=== PATIENT | male | born 1970 | race Caucasian/White ===

== ENCOUNTER 2025-09-12 10:30 | Day surgery (SDC) | payer BC, SELFPAY ==
--- NOTE | 2025-09-11 17:39 | W.ANESPRE ---
General Info Date of Service Date Performed: 09/12/25 Height: 5 ft 10 in Weight: 84.482 kg Body Mass Index (BMI): 26.7 Surgical Procedure: Operation Date: 09/12/25 12:10 Proposed Procedure Side Surgeon p Hernia Ventral Laparoscopic w/Mesh Right Geoff Gill MD Meds Allergies and Home Medications Allergies Allergy/AdvReac Type Severity Reaction Status Date / Time No Known Allergies Allergy Verified 09/12/25 10:36 Home Medication ?Medication ?Instructions ?Recorded ascorbic acid (vitamin C) 500 mg 500 mg PO DAILY 11/21/24 capsule cholecalciferol (vitamin D3) 50 50 mcg PO DAILY 11/21/24 mcg (2,000 unit) capsule tadalafil 20 mg tablet (Cialis) 20 mg PO DAILY PRN 11/21/24 multivitamin 1 tab PO DAILY 09/11/25 Current Visit Medications: Current Medications Generic Name Dose Route Start Last Admin Trade Name Freq PRN Reason Stop Dose Admin Acetaminophen 1,000 mg 09/12/25 06:00 Acetaminophen 500 Mg Tab PO 09/12/25 23:59 PREOP ELLEN Celecoxib 200 mg 09/12/25 06:00 Celecoxib 200 Mg Cap PO 09/12/25 23:59 PREOP ELLEN Gabapentin 600 mg 09/12/25 06:00 Gabapentin 300 Mg Cap PO 09/12/25 23:59 PREOP ELLEN Ringer's Solution 1,000 mls @ 80 mls/hr 09/12/25 06:00 IV 09/12/25 23:59 INFUSION ELLEN Cefazolin Sodium/Dextrose 2 gm in 50 mls @ 100 mls/hr 09/12/25 06:00 Ancef Duplex IVPB 09/12/25 23:59 PREOP ELLEN Sodium Chloride 0 ml 09/12/25 06:00 Normal Saline Flush 10 Ml Syr IV 09/12/25 23:59 PRN PRN Sodium Chloride 0 ml 09/12/25 06:00 Normal Saline 10 Ml Vial IJ 09/12/25 23:59 DIRECTED PRN Sterile Water 0 ml 09/12/25 06:00 Water,Injection,Sterile 10 Ml Vial IJ 09/12/25 23:59 DIRECTED PRN PFSH Active Problems Active Problems: Problem Status Onset Code Spigelian hernia Acute K43.9 Surgical History Surgical History Hx of wisdom tooth extraction History of ankle surgery Tobacco Smoking/Tobacco Use Status: Current-Occasional Tobacco Type: cigarettes Passive smoking exposure: Yes Alcohol Alcohol Intake: current Alcohol intake frequency: 0-2 drinks per day Alcohol type: beer Substance Use Substance use: Never Substance use type: does not use Vital Signs and Lab Results Vital Signs Comment Vital Signs Comment:: Temp Pulse Resp BP Pulse Ox 36.2 C L 74 18 136/98 H 98 09/12/25 10:45 09/12/25 10:45 09/12/25 10:45 09/12/25 10:45 09/12/25 10:45 Anesthesia Assessment and Plan Anesthesia History Personal History: No History of Anesthesia Complications Family History: No Family History of Anesthesia Complications Exercise Tolerance Exercise Tolerance: Metabolic Equivalents>4 Pertinent Negatives Pertinent Negatives: No Symptoms of GERD, No Major Cardiovascular Symptoms or Complaints, No Major Pulmonary Symptoms or Complaints and No History of CVA/TIA Cardiac & Pulmonary Exam Cardiac Exam: Normal S1/S2 Heart Sounds Pulmonary Exam: Clear Bilateral Breath Sounds Implantable Cardiac Device Does patient have a Pacemaker or an ICD?: No Airway Exam Known Difficult Airway: No Mallampati Class: 2 Mouth Opening: Normal (> 3cm) Thyromental Distance: Greater than 3 cm Facial Hair: Full [place] Neck Range of Motion: Full ROM Neck Circumference: Normal Teeth Condition: Normal Dentition ASA Classification ASA Score: ASA 2 Emergency Case?: No NPO Status NPO Status: NPO Clears >2 hours, Solids >8 hours Anesthesia Plan Resuscitation Status: Full Code Anesthesia Technique: General Anesthesia Airway Planned: Endotracheal Tube Monitors Used: Standard Monitors
--- NOTE | 2025-09-11 19:49 | PDOC.DSDIS_ITS ---
Date of service: 09/12/25 Discharge Plan Disposition Patient Disposition: Home Condition: Good Discharge Details Reason For Visit: Spigelian hernia repair Attending Provider: Geoff Gill Primary Care Provider: Wesley Oconnell Home Meds and New Rx's Prescriptions: New tramadol 50 mg tablet 50 mg PO Q8H PRNQty: 12 0RF Rx Instructions: Take 1 tablet by mouth up to every 8 hours if you needed for more severe Continued tadalafil [Cialis] 20 mg tablet 20 mg PO DAILY PRN Rx Instructions: administer approximately 30min before sexual activity; do not use more than 1 dose per 24hrs ascorbic acid (vitamin C) 500 mg capsule 500 mg PO DAILY cholecalciferol (vitamin D3) 50 mcg (2,000 unit) capsule 50 mcg PO DAILY multivitamin Tablet 1 tab PO DAILY Discharge Instructions Instructions: Abdominal Hernia Repair, Laparoscopic Surgery Additional Instructions: Mauricio, it was good to see you today, and I hope you make a quick and uneventful recovery as you transition home. As suspected, you had a spigelian hernia, which I was able to reduce, and repair laparoscopically. As you will see, you have 3 incisions on the left side of your abdomen, as well as 1 tiny little incision on the right lower part of the abdomen. All of these have Band-Aids in place, which can stay until tomorrow. If you need to change the Band-Aid because they get wet or saturated with blood, that is totally fine. Tomorrow, you should remove all the bandages, wash all of the incisions with warm soapy water. If they are comfortable, you do not need to replace the Band-Aids. But if you find that to be more appealing, you are certainly welcome to change the Band-Aids daily. Expect to get some bruising over the incision sites, and perhaps down around that small site on the right side of your abdomen. It is extremely common and nothing to worry about. Using ice packs over the incisions in the area of the hernia will also be helpful with pain and swelling after surgery. As we discussed, be a little careful with your lifting over the next few days, keeping it to about a gallon of milk or so. I look forward to seeing you in the office on the . Obviously, if you need anything in the meantime, please do not hesitate to call at any point. 1. Resume all of your regular medications. 2. Use ice packs over the incisions to help with pain and swelling. 3. Alternate over the counter tylenol and ibuprofen every 6 hours for the first two days, then use them as needed. Use the prescription for tramadol if needed for severe pain. 4. Leave bandages in place for 24 hours, then remove. 5. Shower with warm soapy water. Pat dry. Replace bandaids if you find that more comfortable. 6. No soaking or tub baths until I see you in the office. 7. No heavy lifting until I see you in the office. 8. Call the office (or go directly to the emergency room after hours) if you notice any of the following: Develop chills (warm to touch), or if you have a thermometer and your temperature is above 101 Difficulty breathing or difficultly swallowing Persistent vomiting Any bleeding ? exceeding one tablespoon 9. Call your physician if the site where your intravenous was started becomes red, swollen, painful, and warm to touch. Stand Alone Forms: Anesthesia Discharge Inst., Justine Persaud ([facility]), Portal Information Referrals: Geoff Gill MD [ [facility] STAFF PHYSICIAN, Surgery] - 09/25/25 8:15 am Activity:: no heavy lifting Remove Dressings/Wound Care:: 24 hours Shower/Bathe:: 24 hours Diet:: As Tolerated Discharge Orders Discharge Orders: Discharge Order (Routine); Ordered 09/11/25 Ordered By: Geoff Gill DS: Diagnosis Discharge Diagnosis (1) Spigelian hernia: Status: Acute Asessment and Plan: Discharge home with outpatient follow-up
--- NOTE | 2025-09-11 19:59 | W.PM.OP ---
Operative Note Operative Note PRE-OP DIAGNOSIS: Spigelian hernia PROCEDURE: laparoscopic Spigelian hernia repair with mesh SURGEON: Geoff Gill CHILD CARE EDUCATION COORDINATOR: Mita Keller ANESTHESIA TYPE: Local By Surgeon and General LMA/ETT Refer to Anesthesia Record ESTIMATED BLOOD LOSS: 25 PATHOLOGY: none sent COMPLICATIONS: None Patient was transported to: PACU Patient's condition: stable Implants: Bard polypropylene mesh Indications: Mauricio is a 55-year-old male with a symptomatic spigelian hernia Findings: Right sided spigelian hernia Procedure Description: I met with Mauricio in the preoperative area, we reviewed the plan for surgery. We then moved back to the operating room, and he was assisted onto the OR table. General endotracheal anesthesia was initiated. The left arm was tucked tucked against his side taking great care to ensure that it was padded and supported appropriately. A De La Cruz urinary catheter was inserted to decompress the bladder. This was done using standard aseptic technique without any complications. I prepped and draped the anterior abdominal wall. I anesthetized the skin in the left upper quadrant, made a small incision, and establish pneumoperitoneum using a 5 mm optical viewing port. 5 mm 30 degree scope was advanced back into the peritoneum, and I turned my attention to the right lower quadrant. There is a abnormality seen on the peritoneum, at the lateral edge of the rectus muscle, and an area consistent with spigelian hernia. I then rolled Mauricio slightly into the left sided down position. I performed tap block along the left side using local anesthetic mixed with Exparel. I then placed 2 more ports in the left mid abdomen. One was around the level of the umbilicus, and towards the anterior axillary line, and the other was inferior to this, and a little closer to the midline. Using a LigaSure, I then gently incised the peritoneum medial to the area of the hernia defect. Using blunt dissection, I dropped the peritoneum downwards entering the preperitoneal space. There was a large fat-containing hernia that was easily reduced along the edge of the visualized rectus sheath. All of the fat was completely reduced from the hernia sac. With the fascial margins adequately exposed, I anesthetized the skin overlying the defect, made a punctate incision. Using the Jeff Herrera suture grasper, I passed a 0 PDS suture to close this fascial defect in a [id number] fashion. Once the fascia was reapproximated, I tailored a piece of polypropylene mesh to underlie the repair. The 5 mm port in the anterior axillary line was upsized to 12 mm, and the mesh was introduced into the peritoneal space. It was gently advanced into the preperitoneum, under the fascial repair. The peritoneum was then reapproximated holding this in place with a surgical tacking device. Everything was hemostatic and there was excellent coverage of the mesh. The 12 mm port was removed, and the Jeff Herrera wound closure device was used to reapproximate this defect. The remaining 5 mm ports were removed after the pneumoperitoneum was released. Skin and subcutaneous tissues were closed with subcuticular sutures. Bandages were applied, Mauricio was extubated and transferred to the recovery unit. Date of Procedure: 09/12/25
[2025-09-12] VITALS (23 sets, daily range): BP systolic 101–136; BP diastolic 67–98; PULSE 58–74; RESP 14–31; TEMP 36.1–36.7; O2SAT 94–100; BMI 26.7
[2025-09-12] MEDS: Gabapentin 300 MG CAP 600 MG PO (10:59)
[2025-09-12] MEDS: Acetaminophen 500 MG TAB 1000 MG PO (10:59)
[2025-09-12] MEDS: Celecoxib 200 MG CAP PO (10:59)
[2025-09-12] MEDS: Lactated Ringers 1,000 ML 80 ML IV (11:08)
[2025-09-12] MEDS: ceFAZolin 2 GM/50 ML BAG IVPB (12:38)
[2025-09-12] MEDS: Bupivacaine LIPOSOME/PF 133 MG/10 ML VIAL IJ (13:10)
[2025-09-12] MEDS: Bupivacaine 0.25% Pres-Free 30 ML VIAL (13:10)
[2025-09-12] MEDS: traMADol 50 MG TAB PO (14:58)
--- NOTE | 2025-09-12 16:01 | W.ANESPOSTOP ---
Postoperative Evaluation Date, Time and Location Date Performed: 09/12/25 Time Performed: 16:01 Patient Location: Day Surgery Unit Vital Signs Most Recent Imported Vital Signs: Most Recent Vital Signs Temp Pulse Resp BP Pulse Ox 36.4 C L 72 14 133/90 96 09/12/25 15:31 09/12/25 15:31 09/12/25 15:31 09/12/25 15:31 09/12/25 15:31 Pain Score Most Recent Pain Score: Most Recent Pain Score Pain Level 5 09/12/25 15:31 Assessment Mental Status: Awake (Alert & Oriented to Patient Baseline) Airway and Respiratory Function: Patent airway with normal (patient baseline) respiratory exam Cardiovascular Function: Hemodynamically Stable Hydration Status: Adequately Hydrated Nausea & Vomiting: No Nausea or Vomiting Pain: Pain is tolerable per patient Peripheral Nerve Block: Patient did not receive a nerve block
== END 2025-09-12 16:14 | disposition home or self-care (01) ==
LOC: SUR 10:30
PROVIDERS: PCP Family Medicine; Visit Provider Surgery
PROC: 0WQF4ZZ Repair Abdominal Wall, Percutaneous Endoscopic Approach (ICD-10-PCS; CPT 49593; principal; 2025-09-12 12:00)
DX: K43.9 Ventral hernia without obstruction or gangrene (principal)
CPT/HCPCS: 49593; C1781; J0665; J0666; J0690; J1100; J2003; J2371; J2405; J2704; J3475